=== PATIENT | female | born 1995 | race Caucasian/White ===

== ENCOUNTER 2024-02-07 22:52 | Emergency (ER) | payer OTHER ==
[2024-02-07 22:59] VITALS: BP 99/62; PULSE 85; RESP 16; TEMP 99; BMI 23.3
[2024-02-08] MEDS: ACETAMINOPHEN 1000 MG/100 ML BAG IVPB ONE
[2024-02-08] MEDS: FAMOTIDINE 20 MG/50 ML IVPB 20 MG/50 ML MG IVPB ONE
[2024-02-08] MEDS: SUCRALFATE 1 GM TABLET (FP) PO ONE (00:29)
[2024-02-08] MEDS ORDERED: SUCRALFATE 1 GM TABLET (FP) ONE (00:31)
[2024-02-08] MEDS ORDERED: FAMOTIDINE 20 MG/50 ML IVPB 20 MG/50 ML MG IVPB ONE (00:40)
[2024-02-08] MEDS ORDERED: ACETAMINOPHEN INJECTION 100 ML IVPB ONE (00:40)
[2024-02-08 01:07] LABS: URINE APPEARANCE CLEAR; URINE BILIRUBIN NEGATIVE (NEGATIVE); URINE COLOR YELLOW; URINE GLUCOSE (UA) NEGATIVE (NEGATIVE); URINE KETONE NEGATIVE (NEGATIVE); URINE LEUK ESTERASE NEGATIVE (NEGATIVE); URINE NITRITE NEGATIVE (NEGATIVE); URINE PROTEIN NEGATIVE (NEGATIVE); URINE UROBILINOGEN 0.2 mg/dL (0.2-1.0)
[2024-02-08 01:08] LABS: BASO % 0.1 % (0-2.0); EOS % 0.5 % (0-4.5); HEMATOCRIT 38.4 % (32.4-45.2); HEMOGLOBIN 12.7 GM/dL (10.7-15.3); LYMPH % 11.8 % (8-40); MCH 30.5 pg (25.7-33.7); MCHC 33.2 g/dl (32.0-36.0); MEAN CELL VOLUME 91.6 fl (80-96); MEAN PLT VOLUME 8.2 fl (7.5-11.1); MONO % 7.7 % (3.8-10.2); NEUT % 79.9 % (42.8-82.8); PLATELET COUNT 190 10^3/uL (134-434); RBC 4.19 M/mm3 (3.60-5.2); RDW 13.2 % (11.6-15.6); WHITE BLOOD COUNT 6.9 K/mm3 (4.0-10.0)
[2024-02-08 01:28] LABS: POTASSIUM 3.3 mmol/L (3.5-5.1)
[2024-02-08 01:30] LABS: CALCIUM 8.8 mg/dL (8.5-10.1)
[2024-02-08 01:31] LABS: ALBUMIN 3.9 g/dl (3.4-5.0); BLOOD UREA NITROGEN 4.1 mg/dL (7-18)
[2024-02-08 01:33] LABS: CREATININE 0.5 mg/dL (0.55-1.3)
[2024-02-08 01:35] LABS: BILIRUBIN,TOTAL 0.5 mg/dL (0.2-1); TOT PROT 7.3 g/dl (6.4-8.2)
[2024-02-08] MEDS: POTASSIUM CHLORIDE ORAL LIQUID 20 MEQ/15 ML PO ONE (02:35)
[2024-02-08] MEDS ORDERED: POTASSIUM CHLORIDE ORAL LIQUID 20 MEQ/15 ML ONE (02:40)
== END 2024-02-08 03:31 | disposition home or self-care (01) ==
LOC: JER 22:52
PROC: 3E033GC Introduction of Other Therapeutic Substance into Peripheral Vein, Percutaneous Approach (ICD-10-PCS; principal; 2024-02-07)
PROC: 3E033NZ Introduction of Analgesics, Hypnotics, Sedatives into Peripheral Vein, Percutaneous Approach (ICD-10-PCS; 2024-02-07)
DX: O26.891 Other specified pregnancy related conditions, first trimester (principal); R10.13 Epigastric pain; O21.9 Vomiting of pregnancy, unspecified; O99.281 Endocrine, nutritional and metabolic diseases complicating pregnancy, first trimester; E87.6 Hypokalemia; O99.611 Diseases of the digestive system complicating pregnancy, first trimester; A08.4 Viral intestinal infection, unspecified; Z3A.01 Less than 8 weeks gestation of pregnancy; Z20.822 Contact with and (suspected) exposure to COVID-19
CPT/HCPCS: 0241U-QW; 36415; 76705-TC; 76817-TC; 80053; 81003; 83690; 84702; 85025; 87086; 99284-25; J0131

== ENCOUNTER 2024-09-28 03:59 | Emergency (ER) | payer OTHER ==
[2024-09-28 04:09] VITALS: BMI 26.5
[2024-09-28] MEDS ORDERED: ACETAMINOPHEN INJECTION 100 ML ONE (04:27)
[2024-09-28] MEDS: SODIUM CHLORIDE 0.9% 500 ML INFUS.BAG IV ONE (04:50)
[2024-09-28] MEDS: ACETAMINOPHEN 1000 MG/100 ML BAG IVPB ONE (04:50)
[2024-09-28 05:34] LABS: BASO % 0.1 % (0-2.0); EOS % 1.4 % (0-4.5); HEMATOCRIT 44.2 % (32.4-45.2); HEMOGLOBIN 14.5 GM/dL (10.7-15.3); LYMPH % 10.1 % (8-40); MCHC 32.8 g/dl (32.0-36.0); MEAN CELL VOLUME 94.3 fl (80-96); MEAN PLT VOLUME 8.8 fl (7.5-11.1); MONO % 6.8 % (3.8-10.2); NEUT % 81.6 % (42.8-82.8); PLATELET COUNT 262 10^3/uL (134-434); RBC 4.69 M/mm3 (3.60-5.2); RDW 12.8 % (11.6-15.6); WHITE BLOOD COUNT 7.9 K/mm3 (4.0-10.0)
[2024-09-28 05:46] LABS: INR 1.09 (0.83-1.09); POTASSIUM 3.7 mmol/L (3.5-5.1); PROTHROMBIN TIME (PATIENT) 11.9 SEC (9.7-13.0)
[2024-09-28 05:49] LABS: CALCIUM 8.9 mg/dL (8.5-10.1)
[2024-09-28 05:50] LABS: ALBUMIN 3.3 g/dl (3.4-5.0); BLOOD UREA NITROGEN 12.4 mg/dL (7-18); MAGNESIUM 1.9 mg/dL (1.8-2.4)
[2024-09-28 05:53] LABS: CREATININE 0.6 mg/dL (0.55-1.3)
[2024-09-28 05:54] LABS: BILIRUBIN,TOTAL 0.5 mg/dL (0.2-1)
[2024-09-28 05:55] LABS: TOT PROT 7.3 g/dl (6.4-8.2)
[2024-09-28] MEDS: LACTATED RINGERS SOLUTION 1000 ML INFUS.BAG IV ONE (06:06)
[2024-09-28 06:07] VITALS: PULSE 90; RESP 18; TEMP 100.8
[2024-09-28 06:26] VITALS: BP 113/84
[2024-09-28] MEDS ORDERED: KETOROLAC TROMETHAMINE 15 MG/ML VIAL ONE (06:46)
[2024-09-28] MEDS: KETOROLAC TROMETHAMINE 30 MG/1 ML VIAL IVPUSH ONE (06:52)
[2024-09-28 12:40] LABS: HIV INTERPRETATION NEGATIVE (NEGATIVE)
== END 2024-09-28 06:52 | disposition home or self-care (01) ==
LOC: JER 03:59
PROC: 3E033NZ Introduction of Analgesics, Hypnotics, Sedatives into Peripheral Vein, Percutaneous Approach (ICD-10-PCS; principal; 2024-09-28)
PROC: 3E0333Z Introduction of Anti-inflammatory into Peripheral Vein, Percutaneous Approach (ICD-10-PCS; 2024-09-28)
DX: R50.9 Fever, unspecified (principal); M79.10 Myalgia, unspecified site; Z20.822 Contact with and (suspected) exposure to COVID-19
CPT/HCPCS: 0241U-QW; 36415; 80053; 83735; 85025; 85610; 85730; 86803; 87389; 99284-25; J0131